=== PATIENT | male | born 1955 | race African-American/Black ===

== ENCOUNTER 2022-06-02 12:35 | Emergency (ER) | payer MEDICARE, OTHER ==
[~2022-06-02] VITALS: Ht 175.3 cm; Wt 72.6 kg
[2022-06-02 13:18] VITALS: BP_SYST 150
--- NOTE | 2022-06-02 13:22 | NUR ---
PT [facility]IDRO FROM [facility] PER FAMILY. PT AAOX4, IN NAD. RESP EVEN AND UNLABORED, ON RA @98%. PT ADMITS TO DRINKING COGNAC AND NOT EATING OR DRINKING FLUIDS TODAY. PER REPORT, PT WAS PALE, WAS GIVEN FLUIDS AND FELT BETTER IMMEDIATELY. RECEIEVED 250CC NS IN FIELD. PAST MED HX-HTN, UNKNOWN NAME OF MEDS/COVID DATES, BUT FULLY VACCINATED. DENIES ANY CP OR SOB AT THSI TIME. SAFETY PRECAUTIONS IN PLACE.
[2022-06-02 13:48] LABS: BASOPHILS # (AUTO) 0.1 K/uL (0.0-0.2); BASOPHILS % (AUTO) 0.7 % (0.0-2.0); EOSINOPHILS # (AUTO) 0.4 K/uL (0.0-0.4); EOSINOPHILS % (AUTO) 4.4 % (0.0-4.0); HEMATOCRIT 34.8 % (36-54); HEMOGLOBIN 12.3 g/dL (14.0-18.0); LYMPHOCYTES # (AUTO) 0.7 K/uL (1.0-5.5); LYMPHOCYTES % (AUTO) 8.4 % (20.5-51.5); MEAN CORPUSCULAR HEMOGLOBIN 33 pg (27-31); MEAN CORPUSCULAR HGB CONC 35 % (32-36); MEAN CORPUSCULAR VOLUME 94 fL (79.0-98.0); MONOCYTES # (AUTO) 1.3 K/uL (0.0-1.0); MONOCYTES % (AUTO) 15.3 % (1.7-9.3); NEUTROPHILS % (AUTO) 71.2 % (40.0-70.0); PLATELET COUNT (AUTO) 218 K/uL (130-430); RED BLOOD CELL COUNT(AUTO) 3.69 MIL/uL (4.2-6.2); RED CELL DISTRIBUTION WIDTH 14.3 % (9.0-15.0); WHITE BLOOD COUNT (AUTO) 8.4 K/uL (4.8-10.8)
[2022-06-02 13:57] LABS: ANION GAP 10 (5-15); CHLORIDE 96 mmol/L (98-107); GLUCOSE 101 mg/dL (70-99); POTASSIUM 3.2 mmol/L (3.5-5.1); SODIUM SERUM 134 mmol/L (136-145); UREA NITROGEN, BLOOD 8 mg/dL (8-21)
[2022-06-02 13:59] LABS: GFR AFRICAN AMERICAN 86 mL/min (>90)
[2022-06-02 14:06] LABS: ALANINE AMINOTRANSFERASE 71 U/L (12-78); ALBUMIN 2.9 g/dL (3.4-4.8); ASPARTATE AMINOTRANSFERASE 120 U/L (10-37); TOTAL BILIRUBIN 0.6 mg/dL (0.0-1.0)
--- NOTE | 2022-06-02 15:20 | NUR ---
ER Dr. Morrison at bedside examining patient.
[2022-06-02] MEDS ORDERED: POTASSIUM CHLORIDE 20 MEQ/PKT PACKET PO ONE (15:30)
[2022-06-02] MEDS ORDERED: NACL 0.9% 1,000 ML IV ONE (15:30)
--- NOTE | 2022-06-02 16:57 | NUR ---
Accucheck poc results: 106
[2022-06-02 17:58] LABS: BILIRUBIN,URINE 1+ (NEGATIVE); BLOOD, URINE NEGATIVE (NEGATIVE); GLUCOSE,URINE NEGATIVE (NEGATIVE); KETONES,URINE TRACE (NEGATIVE); LEUKOCYTE ESTERASE ,URINE 1+ (NEGATIVE); NITRITE, URINE NEGATIVE (NEGATIVE); PH,URINE 5.5 (5.0-8.0); PROTEIN URINE TRACE (NEGATIVE)
[2022-06-02 18:07] LABS: CLARITY/URINE HAZY (CLEAR); COLOR,URINE AMBER (YELLOW)
[2022-06-02 18:09] LABS: BACTERIA,URINE FEW /HPF (None Seen); MUCUS,URINE None Seen /LPF (None Seen); RBC,URINE 0-3 /HPF (0-3)
--- NOTE | 2022-06-02 18:13 | NUR ---
PT SITTING IN WC IN THE [facility] NO COMPLAINTS AT THIS TIME. PT IS COOPERATIVE AAOX4.
[2022-06-02] MEDS ORDERED: cloNIDine HCL 0.1 MG TABLET PO ONE (18:45)
[2022-06-02] MEDS ORDERED: cloNIDine HCL 0.1 MG TABLET ONE (18:50)
[2022-06-02] MEDS ORDERED: CEPH-548 PO (19:20)
--- NOTE | 2022-06-02 19:20 | NUR ---
Pt is aaox4 bp is coming down with Catapres. 190/110 at 1900 180/98 at 1915. will continue to monitor pt bp.
--- NOTE | 2022-06-02 19:34 | NUR ---
PT report given to charge Nurse
--- NOTE | 2022-06-02 19:50 | NUR ---
Patient given written and verbal discharge instructions and verbalizes understanding. ER MD discussed with patient the results and treatment provided. Patient in stable condition. ID arm band removed. Rx of Cephalexin given. Patient educated on pain management and to follow up with PMD. Pain Scale 0/10. Opportunity for questions provided and answered. Medication side effect fact sheet provided.
[2022-06-02 19:57] VITALS: BP_SYST 176
== END 2022-06-02 19:57 | disposition home or self-care (01) ==
LOC: SED 12:35
DX: R55 Syncope and collapse (principal)
CPT/HCPCS: 99285; 96360; 70450; 71045; 80053; 81000; 82962; 85025; 87086; 84484; 36415; 93005; 76376; J7030